=== PATIENT | female | born 1990 | race Caucasian/White ===

== ENCOUNTER 2021-04-18 15:49 | Inpatient (IN) | payer OTHER ==
[~2021-04-18] VITALS: Ht 170.2 cm; Wt 68.0 kg
[~2021-04-18 15:49] MED LIST: ALBU90OI INH; AZIT250 PO; CLIN300 PO; HYDACE5 PO; ONDA4ODT MM; PRED10 PO; Prednisone50 MG PO; RXPROM25 PO; RXTRAM50 PO; TRAM50 PO; Ventolin5 MG/1 ML INH
[2021-04-18 16:32] LABS: BASOPHILS ABSOLUTE AUTO 0.02 K/mm3 (0.00-0.23); BASOPHILS PERCENT AUTO 0 % (0-2); EOSINOPHILS PERCENT AUTO 0 % (0-6); Hematocrit 43.2 % (33.0-51.0); Hemoglobin 14.5 g/dL (11.5-16.0); IMMATURE GRAN ABSOLUTE AUTO 0.01 K/mm3 (0.00-0.10); IMMATURE GRAN PERCENT AUTO 0 % (0-1); LYMPHOCYTES ABSOLUTE AUTO 0.25 K/mm3 (0.84-5.20); LYMPHOCYTES PERCENT AUTO 3 % (21-46); MONOCYTES ABSOLUTE AUTO 0.13 K/mm3 (0.16-1.47); MONOCYTES PERCENT AUTO 2 % (4-13); Mean Corpuscular HGB Conc 33.6 g/dL (31.5-36.5); Mean Corpuscular Volume 89 fL (80-100); Mean Platelet Volume 9.4 fL (9.1-12.4); NEUTROPHILS ABSOLUTE AUTO 7.29 K/mm3 (1.96-9.15); NEUTROPHILS PERCENT AUTO 95 % (41-73); Platelet Count 245 K/mm3 (150-400); RDW Coefficient Variation 13.8 % (11.7-14.2); RDW Standard Deviation 45.1 fL (35.1-46.3); Red Blood Cell Count 4.84 M/mm3 (3.80-5.20)
[2021-04-18 16:54] LABS: Alanine Aminotransfer (ALT/SGP 22 U/L (12-78); Albumin, Blood 4.2 g/dL (3.4-5.0); Alk Phos 69 U/L (50-136); Anion Gap 10 mmol/L (6-16); Aspartate Aminotrans (AST/SGOT 14 U/L (12-37); Bilirubin, Total 0.4 mg/dL (0.1-1.0); Blood Urea Nitrogen 6 mg/dL (8-24); Bun/Creatinine Ratio 10.1 (12.0-20.0); CO2, Blood 20 mmol/L (21-32); Calcium, Blood 9.1 mg/dL (8.5-10.1); Chloride, Blood 107 mmol/L (98-108); Globulin, Blood 4.3 g/dL (2.2-4.0); Glomerular Filtration Rate >60 (60-); Glucose, Blood 163 mg/dL (70-99); Sodium, Blood 137 mmol/L (136-145); Total Protein, Blood 8.5 g/dL (6.4-8.2)
[2021-04-18 17:58] LABS: Influenza A, PCR NEGATIVE (NEGATIVE); Influenza B, PCR NEGATIVE (NEGATIVE); Resp Syncytial Virus, PCR NEGATIVE (NEGATIVE); SARS-Cov-2 (COVID-19) PCR, MMC NEGATIVE (NEGATIVE)
[2021-04-18 19:10] LABS: Base Excess Venous -9.7 mmol/L; Bicarbonate Venous 17.5 mmol/L (24.0-30.0); PCO2 Venous 33.6 mmHg (38-42); PO2 Venous 89.3 mmHg (38-42)
[2021-04-18 20:48] LABS: CPK Creatine Kinase 72 U/L (26-193)
--- NOTE | 2021-04-18 22:31 | NUR ---
MD BENNETT CONTACTED TO UPDATE PATIENT STATUS. INFORMED MD OF PATIENTS CONTINUED PROGRESSIVE ANXIETY. PATIENT IN RESPIRATORTY DISTRESS, O2 SATURATION STABLE 93-100%. AFTER ADMINISTERING IV FENTANYL,GUAFINESSIN/CODEINE AND PO ATIVAN PATIENT VOMITED- PO MEDICATION POTENTIALLY NOT ABLE TO TAKE EFFECT. REQUESTING ADDITIONAL PRN ANTI-ANXIETY MEDICATION. MD APPROVED PRN ATIVAN 0.5MG ONCE FOR ANXIETY. MD APPROVED APPROPRIATE TO ADMINISTER SCHEDULED IV SOLUMEDROL NOW. REQUESTED ADDITIONAL RESPIRATORY TREATMENT MD INFORMED NOT APPRORIATE AT THIS TIME AND NO FURTHER INTERVENTIONS RECOMMENDED.
[2021-04-19 04:47] LABS: BASOPHILS ABSOLUTE AUTO 0.01 K/mm3 (0.00-0.23); BASOPHILS PERCENT AUTO 0 % (0-2); EOSINOPHILS PERCENT AUTO 0 % (0-6); Hematocrit 43.3 % (33.0-51.0); Hemoglobin 14.1 g/dL (11.5-16.0); IMMATURE GRAN ABSOLUTE AUTO 0.04 K/mm3 (0.00-0.10); IMMATURE GRAN PERCENT AUTO 0 % (0-1); LYMPHOCYTES ABSOLUTE AUTO 0.51 K/mm3 (0.84-5.20); LYMPHOCYTES PERCENT AUTO 5 % (21-46); MONOCYTES ABSOLUTE AUTO 0.18 K/mm3 (0.16-1.47); MONOCYTES PERCENT AUTO 2 % (4-13); Mean Corpuscular HGB 29.2 pg (26.0-34.0); Mean Corpuscular HGB Conc 32.6 g/dL (31.5-36.5); Mean Corpuscular Volume 90 fL (80-100); Mean Platelet Volume 9.6 fL (9.1-12.4); NEUTROPHILS PERCENT AUTO 93 % (41-73); Platelet Count 249 K/mm3 (150-400); RDW Coefficient Variation 13.9 % (11.7-14.2); Red Blood Cell Count 4.83 M/mm3 (3.80-5.20); White Blood Cell Count 10.14 K/mm3 (4.00-11.30)
[2021-04-19 05:02] LABS: U Amphetamine Screen Not Detected; U Barbituate Screen Not Detected; U Benzodiazapine Screen DETECTED; U Buprenorphine Screen Not Detected; U Cannabinoids Screen DETECTED; U Cocaine Screen Not Detected; U Methadone Screen Not Detected; U Methamphetamine Screen Not Detected; U Opiates Screen DETECTED; U Oxycodone Screen Not Detected; U Phencyclidine Screen Not Detected; U Propoxyphene Screen Not Detected
[2021-04-19 05:32] LABS: Alanine Aminotransfer (ALT/SGP 23 U/L (12-78); Albumin, Blood 3.8 g/dL (3.4-5.0); Alk Phos 69 U/L (50-136); Anion Gap 7 mmol/L (6-16); Aspartate Aminotrans (AST/SGOT 14 U/L (12-37); Bilirubin, Total 0.6 mg/dL (0.1-1.0); Blood Urea Nitrogen 7 mg/dL (8-24); Bun/Creatinine Ratio 13.4 (12.0-20.0); CO2, Blood 20 mmol/L (21-32); Calcium, Blood 8.6 mg/dL (8.5-10.1); Chloride, Blood 110 mmol/L (98-108); Creatinine, Blood 0.52 mg/dL (0.40-1.00); Globulin, Blood 3.8 g/dL (2.2-4.0); Glomerular Filtration Rate >60 (60-); Glucose, Blood 146 mg/dL (70-99); Potassium, Blood 4.8 mmol/L (3.5-5.5); Sodium, Blood 137 mmol/L (136-145); Total Protein, Blood 7.6 g/dL (6.4-8.2)
--- NOTE | 2021-04-19 05:59 | NUR ---
SHIFT SUMMARY: UPON INITIAL ASSESSMENT POST TRANSFER TO UNIT PATIENT WAS IN RESPIRATORY DISTRESS. RT CONTACTED TO ASSIST IN RESPIRATORY TREATEMENT. PATIENT EXPERIENCED HIGH ANXIETY DURING DISTRESS- MANAGED WITH ATIVAN. LUNGS SOUNDS- INSPIRATORY AND EXPIRATORY WHEEZING, CRACKLES, RHOCHI PAIN 10/10 FENTANYL GIVEN- PT HAD EMESIS EPISODE POST ADMINISTRATION OF FENTANYL. PAIN WAS NOT RELIEVED UNTIL RESPIRATORY STATE IMPROVED. IV SOLUMEDROL QUICKLY IMPROVED PATIENTS RESPIRATORY STATUS AND LUNG SOUNDS IMPROVED, DECREASED WHEEZING IN COMBINATION WITH NEBULIZED RESPIRATORY TREATEMENTS- PT ABLE TO REST COMFORTABLY THROUGH REMAINING SHIFT
[2021-04-19 11:21] LABS: Source, Urine Clean Catch
[2021-04-19 11:28] LABS: Bilirubin, Urine Neg (Neg); Blood, Urine Neg (Neg); Glucose Qualitative, Urine Neg (Neg); Ketones, Urine 3+ (Neg); Leukocyte Esterase, Urine Neg (Neg); Nitrite, Urine Neg (Neg); Protein, Urine 1+ (Neg); Urobilinogen, Urine NORM (Normal)
[2021-04-19 11:34] LABS: Appearance, Urine Hazy (Clear); Color, Urine Pale Yellow (P-Yellow)
[2021-04-19 11:35] LABS: Bacteria Few /hpf; Mucus Mod (0-Heavy); Red Blood Cells, Urine 0-2 /hpf (0-2); Squamous Epithelial Cells Few /hpf (Few); White Blood Cells, Urine 0-2 /hpf (0-5)
--- NOTE | 2021-04-19 16:52 | NUR ---
PATIENT IS AWKE,ALERT AND ORIENTED TIMES THREE. DENIES PAIN. PATIENT IS VERY ANXIOUS. ANXIETY MEDICATION GIVEN PER MD ORDER. MADE CHANGE TO HER BREATHING TREATMENT REGIMEN. PATIENT IS ON ROOM AIR WITH OXYGEN STATURATION IS 94%.
--- NOTE | 2021-04-20 04:47 | NUR ---
SHIFT SUMMARY PATIENT ALERT ORIENTED X4 ABLE TO VOICE NEEDS LUNGS SOUND WHEEZING BRENNON WITH NONPRODUCTIVE WET COUGH NEB TX ADM AND COUGH SYRUP ADM WITH RELIEF.INCREASED ANXIETY NOTED CRYING WITH NO REASON PT STATED SHE GETS PANIC ATTACKS ALL THE TIME PRN ATIVAN ADM EMAR.
[2021-04-20 04:53] LABS: BASOPHILS PERCENT AUTO 0 % (0-2); EOSINOPHILS PERCENT AUTO 0 % (0-6); Hematocrit 39.1 % (33.0-51.0); Hemoglobin 13.1 g/dL (11.5-16.0); IMMATURE GRAN ABSOLUTE AUTO 0.06 K/mm3 (0.00-0.10); IMMATURE GRAN PERCENT AUTO 1 % (0-1); LYMPHOCYTES ABSOLUTE AUTO 0.62 K/mm3 (0.84-5.20); LYMPHOCYTES PERCENT AUTO 6 % (21-46); MONOCYTES ABSOLUTE AUTO 0.22 K/mm3 (0.16-1.47); MONOCYTES PERCENT AUTO 2 % (4-13); Mean Corpuscular HGB 29.7 pg (26.0-34.0); Mean Corpuscular HGB Conc 33.5 g/dL (31.5-36.5); Mean Corpuscular Volume 89 fL (80-100); Mean Platelet Volume 9.6 fL (9.1-12.4); NEUTROPHILS ABSOLUTE AUTO 9.72 K/mm3 (1.96-9.15); NEUTROPHILS PERCENT AUTO 92 % (41-73); Platelet Count 249 K/mm3 (150-400); RDW Coefficient Variation 14.1 % (11.7-14.2); RDW Standard Deviation 46.1 fL (35.1-46.3); Red Blood Cell Count 4.41 M/mm3 (3.80-5.20); White Blood Cell Count 10.62 K/mm3 (4.00-11.30)
[2021-04-20 05:21] LABS: Alanine Aminotransfer (ALT/SGP 23 U/L (12-78); Albumin, Blood 3.4 g/dL (3.4-5.0); Albumin/Globulin Ratio 0.9 (0.8-1.8); Alk Phos 54 U/L (50-136); Anion Gap 8 mmol/L (6-16); Aspartate Aminotrans (AST/SGOT 15 U/L (12-37); Bilirubin, Total 0.8 mg/dL (0.1-1.0); Blood Urea Nitrogen 13 mg/dL (8-24); CO2, Blood 22 mmol/L (21-32); Calcium, Blood 8.9 mg/dL (8.5-10.1); Chloride, Blood 108 mmol/L (98-108); Creatinine, Blood 0.52 mg/dL (0.40-1.00); Globulin, Blood 3.9 g/dL (2.2-4.0); Glomerular Filtration Rate >60 (60-); Glucose, Blood 133 mg/dL (70-99); Sodium, Blood 138 mmol/L (136-145); Total Protein, Blood 7.3 g/dL (6.4-8.2)
--- NOTE | 2021-04-20 08:30 | NUR ---
pt sitting up in bed coughing, has a harsh course cough, a/ox3, pleasant and cooperative with care, follows commands well, denies pain, but states she feels like she can't breath, but is much better than when she came in, she is on r/a, lungs have insp wheezing t/o, and course t/o, reports a productive cough of yellow sputum, hrr, tele in place running sr per monitor, see strip, no edema noted, ppp+2, cap refill<3sec, v.s. stable, afebrile, iv site to rac is clear and patent, btx4, abd flat soft nontender, voids without diff, skin c/w/d, maew, up ad max, eugenia, call light in reach.
--- NOTE | 2021-04-20 18:11 | NUR ---
pt had a much more calm late afternoon than this am, she had a shower and feels better from that, no complaints. lungs are still course and wheezing, no acute changes this shift. call light in reach. visitors in room.
--- NOTE | 2021-04-21 04:43 | NUR ---
SHIFT SUMMARY PATIENT ALERT AND ORIENTED X 4 LUNGS SOUNGS CLEAR TODAY WITH DRY COUGH COUGH SYRUP ADMIN PER REQUEST MADISON ANY PAIN NO ACUTE CHANGE IN THIS SHIFT
[2021-04-21 05:45] LABS: BASOPHILS ABSOLUTE AUTO 0.01 K/mm3 (0.00-0.23); BASOPHILS PERCENT AUTO 0 % (0-2); EOSINOPHILS PERCENT AUTO 0 % (0-6); Hematocrit 42.2 % (33.0-51.0); Hemoglobin 13.9 g/dL (11.5-16.0); IMMATURE GRAN ABSOLUTE AUTO 0.05 K/mm3 (0.00-0.10); IMMATURE GRAN PERCENT AUTO 1 % (0-1); LYMPHOCYTES ABSOLUTE AUTO 0.91 K/mm3 (0.84-5.20); LYMPHOCYTES PERCENT AUTO 9 % (21-46); MONOCYTES ABSOLUTE AUTO 0.26 K/mm3 (0.16-1.47); MONOCYTES PERCENT AUTO 3 % (4-13); Mean Corpuscular HGB 29.6 pg (26.0-34.0); Mean Corpuscular HGB Conc 32.9 g/dL (31.5-36.5); Mean Corpuscular Volume 90 fL (80-100); Mean Platelet Volume 9.9 fL (9.1-12.4); NEUTROPHILS ABSOLUTE AUTO 8.92 K/mm3 (1.96-9.15); NEUTROPHILS PERCENT AUTO 88 % (41-73); Platelet Count 284 K/mm3 (150-400); RDW Coefficient Variation 14.3 % (11.7-14.2); RDW Standard Deviation 47.2 fL (35.1-46.3); White Blood Cell Count 10.15 K/mm3 (4.00-11.30)
[2021-04-21 06:09] LABS: Anion Gap 7 mmol/L (6-16); Blood Urea Nitrogen 13 mg/dL (8-24); Bun/Creatinine Ratio 23.9 (12.0-20.0); CO2, Blood 22 mmol/L (21-32); Chloride, Blood 107 mmol/L (98-108); Creatinine, Blood 0.54 mg/dL (0.40-1.00); Glomerular Filtration Rate >60 (60-); Glucose, Blood 125 mg/dL (70-99); Potassium, Blood 4.6 mmol/L (3.5-5.5); Sodium, Blood 136 mmol/L (136-145)
--- NOTE | 2021-04-21 13:20 | NUR ---
CHARTING A FAST FOOD ATTENDANT STUDENT.
--- NOTE | 2021-04-21 17:50 | NUR ---
SHIFT SUMMARY PT AxOx4. PLEASANT AND COOPERATIVE WITH CARE. PT REPORTS SOME ANXIETY THIS AM. MEDICATED PER EMAR. PT LS WHEEZY T/O. PT STARTED NEW RX FOR CYMBALTA. PER METAL TURNER, SIN TACH 108. CURRENT PLAN IS LIKELY TO DC TOMORROW. VITALS REVIEWED. PT DENIES ANY NEEDS AT THIS TIME. CALL LIGHT IN REACH.
--- NOTE | 2021-04-22 05:17 | NUR ---
SHIFT SUMMARY AOX3 PLEASANT MADISON PAIN COUGHING REDUCED TO MINIMUN LUNGS SOUND CLEAR NO WHEEZING NOTED IN THIS SHIFT SLEPT WELL TODAY. D/C TODAY PER PT
--- NOTE | 2021-04-22 05:29 | NUR ---
TELE SINUS RYTHIM HR 89
[2021-04-22] MEDS ORDERED: Prednisone10 MG PO (13:21)
[2021-04-22] MEDS ORDERED: CODEINE-GUAIFE120 M1 PO (13:24)
[2021-04-22] MEDS ORDERED: DULO30 PO (13:26)
[2021-04-22] MEDS ORDERED: FLUTICASONE-SA1 EAC2 INH (13:28)
[2021-04-22] MEDS ORDERED: HYDHCL25 PO (13:29)
[2021-04-22] MEDS ORDERED: MONT10T PO (13:29)
--- NOTE | 2021-04-22 13:45 | NUR ---
DISHCHARGED PT A&O X4 DURING D/C INSTRUCTION. PT PROVIDED W/ WRITTEN AND VERBAL INSTRUCTION, BOYFRIEND @ BEDSIDE. PT VERBALIZED UNDERSTANDING. IV D/TANIKA, TELE DC'ED. VSS. PT BELONGINGS IN TOW, BOYFRIEND PROVIDED TRANSPORT. PT DENIED NEED FOR NURSE TO WALK TO CURBSIDE, OR NEED OF WC. SCRIPTS FAXED TO [facility], F/U APPT. SET @ [facility].
--- NOTE | 2021-04-22 17:27 | NUR ---
PT CALLED STATED SHE DOESNT HAVE A RESCUE INHALER AT HOME. CALLED TO DR GEOVANNI SCHULZ FOR 1 REFILL OF ALBUTEROL INHALER. CALLED RX [facility]. CALLED PT AND LET HER KNOW.
== END 2021-04-22 13:57 | disposition home or self-care (01) | DRG 203 ==
LOC: ER 15:49 → MEDS 20:03
PROVIDERS: Family Medicine; Physician Assistant; ADMIT Internal Medicine
DX: J45.41 Moderate persistent asthma with (acute) exacerbation (principal); Z20.822 Contact with and (suspected) exposure to COVID-19; R35.0 Frequency of micturition; R00.0 Tachycardia, unspecified; R06.03 Acute respiratory distress; R11.10 Vomiting, unspecified; F41.9 Anxiety disorder, unspecified; Z90.89 Acquired absence of other organs; Z79.899 Other long term (current) drug therapy; Z88.0 Allergy status to penicillin; Z88.1 Allergy status to other antibiotic agents; Z28.21 Immunization not carried out because of patient refusal; Z79.52 Long term (current) use of systemic steroids
CPT/HCPCS: 0241U; 36415; 80048; 80053; 81001; 82550; 82803; 83690; 83880; 85025; 85379; 93005; 93010; 94640; 94644; 94760; 96372; 96374; 96375; 96376; 99285-25; A9270; G0378; J1650; J2060; J2405; J2930; J3010; J3475; J7030

== ENCOUNTER 2022-10-02 09:07 | Emergency (ER) | payer OTHER ==
[~2022-10-02] VITALS: Ht 170.2 cm; Wt 72.6 kg
[~2022-10-02 09:07] MED LIST changes: +CODEINE-GUAIFE120 M1 PO; +DULO30 PO; +FLUTICASONE-SA1 EAC2 INH; +HYDHCL25 PO; +MONT10T PO; +Prednisone10 MG PO
[2022-10-02 09:59] VITALS: BP 142/104
== END 2022-10-02 10:26 | disposition home or self-care (01) ==
LOC: ER 09:07
DX: T63.441A Toxic effect of venom of bees, accidental (unintentional), initial encounter (principal); J45.909 Unspecified asthma, uncomplicated; Z88.0 Allergy status to penicillin; Z79.52 Long term (current) use of systemic steroids; Z79.51 Long term (current) use of inhaled steroids; Z79.899 Other long term (current) drug therapy; X58.XXXA Exposure to other specified factors, initial encounter
CPT/HCPCS: 96372; 99283-25; J3301